=== PATIENT | female | born 1995 | race Caucasian/White ===

== ENCOUNTER 2016-06-20 05:26 | Day surgery (SDC) | payer OTHER ==
[~2016-06-20] VITALS: Ht 152.4 cm; Wt 80.7 kg
[2016-06-20 06:54] LABS: UCG SCREEN NEGATIVE
[2016-06-20] MEDS ORDERED: LACTATED RINGERS 1,000 ML IV SCH (07:00)
[2016-06-20] MEDS ORDERED: EPINEPHRINE 1:1000 1 MG/ML AMP ONE (07:06)
[2016-06-20] MEDS ORDERED: MORPHINE SULFATE/PF 1MG/ML 10ML AMP ONE (07:06)
[2016-06-20] MEDS ORDERED: BUPIVACAINE/EPINEPH/PF 0.25%/0.0005 10ML ONE ×2 (07:07→07:09)
[2016-06-20] MEDS ORDERED: MIDAZOLAM HCL 2 MG/2 ML VIAL ONE (07:37)
[2016-06-20] MEDS ORDERED: FENTANYL CITRATE/PF 50MCG/ML 2ML VIAL ONE (07:39)
[2016-06-20] MEDS ORDERED: ROCURONIUM BROMIDE 10MG/ML VIAL 5ML IV ONE (07:40)
[2016-06-20] MEDS ORDERED: CEFAZOLIN SODIUM 1000MG/VIAL ONE (07:40)
[2016-06-20] MEDS ORDERED: LIDOCAINE HCL 1% 20ML VIAL (Pyxis) INJ ONE (07:40)
[2016-06-20] MEDS ORDERED: PROPOFOL 200MG/20ML VIAL IV ONE ×2 (07:40→08:46)
[2016-06-20] MEDS ORDERED: SODIUM CHLORIDE 0.9% 1,000 ML IV SCH (08:12)
[2016-06-20] MEDS ORDERED: ONDANSETRON HCL 4MG/2ML VIAL IV PRN (08:15)
[2016-06-20] MEDS ORDERED: MEPERIDINE HCL/PF 25MG/ML CPJ IV PRN (08:15)
[2016-06-20] MEDS ORDERED: ONDANSETRON HCL 4MG/2ML VIAL ONE (08:44)
[2016-06-20] MEDS ORDERED: GLYCOPYRROLATE 0.2 MG/ML 2ML VIAL ONE (08:44)
[2016-06-20] MEDS ORDERED: NEOSTIGMINE METHYLSULFATE 1MG/ML 10 ML VIAL ONE (08:44)
[2016-06-20] MEDS ORDERED: DEXAMETHASONE 4MG/ML 1ML VIAL ONE (08:44)
[2016-06-20] MEDS ORDERED: SODIUM CHLORIDE 0.9% 1000ML BAG ONE (13:57)
[2016-06-20] MEDS: HYDROMORPHONE HCL/PF 2MG/ML CPJ IV PRN ×2 (17:55→17:56)
[2016-06-20 17:56] VITALS: BP 114/62
== END 2016-06-20 11:40 | disposition home or self-care (01) ==
LOC: OR 05:26
PROVIDERS: ATTEND Orthopaedic Surgery Sports Medicine
DX: S83.512A Sprain of anterior cruciate ligament of left knee, initial encounter (principal); S83.282A Other tear of lateral meniscus, current injury, left knee, initial encounter; S83.412A Sprain of medial collateral ligament of left knee, initial encounter; X58.XXXA Exposure to other specified factors, initial encounter; Y93.89 Activity, other specified; Y92.89 Other specified places as the place of occurrence of the external cause; Y99.8 Other external cause status; M65.9 Synovitis and tenosynovitis, unspecified; E66.01 Morbid (severe) obesity due to excess calories
CPT/HCPCS: 29882; 81025; 88304; 88311; J0171; J0690; J1100; J1170; J2250; J2405; J2710; J3010; J3490; J7120; J2274; J2704; J7030